=== PATIENT | male | born 1965 | race Caucasian/White ===

== ENCOUNTER 2020-06-12 22:55 | Emergency (ER) | payer SELFPAY ==
[~2020-06-12] VITALS: Ht 182.9 cm; Wt 73.8 kg
[2020-06-12 23:01] VITALS: BP 6/86
[2020-06-12] MEDS ORDERED: IBUPROFEN 600 MG TABLET ONE (23:17)
[2020-06-12] MEDS ORDERED: IBUPROFEN 600 MG TABLET PO ONE (23:30)
== END 2020-06-13 00:09 | disposition home or self-care (01) ==
LOC: ED 23:46
DX: S63.501A Unspecified sprain of right wrist, initial encounter (principal); X58.XXXA Exposure to other specified factors, initial encounter; Y93.89 Activity, other specified; Y92.89 Other specified places as the place of occurrence of the external cause; Y99.8 Other external cause status
CPT/HCPCS: 99283